=== PATIENT | female | born 1985 | race Caucasian/White ===

== ENCOUNTER 2016-06-22 07:26 | Inpatient (IN) | payer OTHER ==
[~2016-06-22] VITALS: Ht 162.6 cm; Wt 78.9 kg
[2016-06-22] MEDS ORDERED: fentaNYL-PF 50 mCg/mL 2 mL Inj IVPUSH PRN (08:00)
[2016-06-22] MEDS ORDERED: Oxytocin 10 Unit/mL Inj IM PRN (08:00)
[2016-06-22] MEDS ORDERED: Hemorrhage Kit, Post Partum XX ONE (08:00)
[2016-06-22] MEDS ORDERED: Oxytocin 30 Units/500 mL LR 30 UNITS in IV Premix 1 EACH IV PRN (08:00)
[2016-06-22] MEDS ORDERED: Penicillin G K Inj 5,000,000 UNITS in Dextrose 5% Minibag Plus 100 ML IV ONE (08:00)
[2016-06-22] MEDS ORDERED: Carboprost 250 mCg/mL Inj IM PRN (08:00)
[2016-06-22] MEDS ORDERED: Sodium Chloride LOK Flush 10 mL Syringe IVFLUSH PRN (08:00)
[2016-06-22] MEDS ORDERED: Methylergonovine 0.2 mg/mL Inj IM PRN (08:00)
[2016-06-22 08:50] LABS: Mean Corpuscular Volume 85.4 fL (81-100)
[2016-06-22] MEDS: Misoprostol 25 mCg/0.25 Tablet VAGINAL SCH ×2 (08:50→14:16)
[2016-06-22] MEDS: Lactated Ringer's 1,000 ML IV PRN ×2 (10:52→15:43)
[2016-06-22] MEDS: Penicillin G K Inj 3,000,000 UNITS in IV Premix 1 EACH IV SCH ×2 (15:44→21:26)
[2016-06-22] MEDS ORDERED: Lactated Ringer's 1,000 ML IV SCH (22:59)
[2016-06-22] MEDS ORDERED: Lactated Ringer's 500 ML IV ONE (22:59)
[2016-06-22] MEDS ORDERED: Ondansetron 2 mg/mL 2 mL Inj IVPUSH PRN (23:00)
[2016-06-22] MEDS ORDERED: fentaNYL 2 mCg/mL-Bupiv 0.125% 100 ML EPIDURAL SCH (23:00)
[2016-06-22] MEDS ORDERED: EPHEDrine Sulfate 50 mg/mL Inj IVPUSH PRN (23:00)
[2016-06-22] MEDS ORDERED: Atropine 1 mg/10 mL (Code) Syringe IVPUSH PRN (23:00)
[2016-06-23] MEDS ORDERED: Sodium Chloride LOK Flush 10 mL Syringe IVFLUSH SCH (00:30)
[2016-06-23] MEDS: Penicillin G K Inj 3,000,000 UNITS in IV Premix 1 EACH IV SCH (02:12)
[2016-06-23] MEDS ORDERED: Lactated Ringer's 1,000 ML IV SCH ×2 (06:36→07:37)
[2016-06-23] MEDS ORDERED: Oxytocin 10 Unit/mL Inj IM PRN ×2 (06:40→07:40)
[2016-06-23] MEDS ORDERED: Hemorrhage Kit, Post Partum XX ONE ×2 (06:40→07:40)
[2016-06-23] MEDS ORDERED: Carboprost 250 mCg/mL Inj IM PRN ×2 (06:40→07:40)
[2016-06-23] MEDS ORDERED: Methylergonovine 0.2 mg/mL Inj IM PRN ×2 (06:40→07:40)
[2016-06-23] MEDS ORDERED: LANOlin HPA 7 Gm Ointment TOPICAL PRN (07:40)
[2016-06-23] MEDS ORDERED: Benzocaine (Dermoplast) 20% 60 Gm Spray TOPICAL PRN (07:40)
[2016-06-23] MEDS ORDERED: Witch Hazel-Glycerin Pads TOPICAL PRN (07:40)
[2016-06-23] MEDS ORDERED: Oxytocin 30 Units/500 mL LR 30 UNITS in IV Premix 1 EACH IV PRN (07:40)
[2016-06-23] MEDS: HYDROcodone-APAP 5-325 mg Tablet PO PRN ×4 (08:00→23:26)
[2016-06-23] MEDS: CeFAZolin Inj 1 GM in IV Premix 1 EACH IV SCH ×2 (08:37→16:46)
--- NOTE | 2016-06-23 23:22 | PROCED ---
[address] [address] PROCEDURE NOTE PATIENT: ADAN RAE : 1985 MR#: [id number] ADMIT: 06/22/2016 JOB ID: [id number] DATE OF SERVICE: 06/23/2016 at 5:52 a.m. POSTOPERATIVE DIAGNOSIS(ES): PREOPERATIVE DIAGNOSIS(ES): SURGEON: ANESTHESIA: This female at 41.5 weeks estimated gestational age delivered a vigorous infant female with Apgars of 8 and 9 by normal vaginal delivery. The patient presented for induction on June 22. She received two doses of Cytotec during that day and then entered labor in the normal fashion. She stated in latent labor for several hours and then progressed on her own without the help of Pitocin. She did receive four doses of antibiotics prior to delivery. The antibiotic of choice was penicillin. She spontaneously ruptured her membranes about 2 hours prior to delivery. This was clear fluid. The patient had no fevers. She was complete by 5 a.m. She was allowed to labor down. She was a very effective 1st pusher when she started to push and pushed over approximately 20-30 minutes. There was terminal deceleration noted that was down into the 70s and stayed down and so an episiotomy was cut. This was a second-degree midline episiotomy. The infant delivered in quick fashion and a nuchal cord was reduced on the perineum. The was immediately vigorous. Delayed cord clamping was performed. Once approximately 2-3 minutes had gone by, the cord was clamped and cut and cord blood was sent for analysis. At this point, active management of this stage of labor was applied and Pitocin was started along with gentle traction on the cord. Unfortunately, this resulted in the placenta becoming entrapped due to the fact that the placenta was so small and the cord was lacking very much Lamb's jelly. Fortunately, the patient had an epidural. I had to manually extract the placenta and this still caused discomfort despite the epidural. The placenta was eventually fully extracted and I rechecked her uterus for any remnants and none were found. The patient was placed on antibiotics following delivery for this reason, however. The patient then required repair of her second-degree perineal laceration/episiotomy. This was repaired in the usual fashion using 3-0 Vicryl. 8 cc of local anesthesia was used. The patient's uterus was found to be firm following delivery. Pitocin was kept running at 350 cc an hour. The total blood loss was 300 cc and there were no other complications. The patient was in excellent condition following delivery.
[2016-06-24] MEDS: CeFAZolin Inj 1 GM in IV Premix 1 EACH IV SCH ×2 (00:49→08:26)
[2016-06-24] MEDS: HYDROcodone-APAP 5-325 mg Tablet PO PRN ×3 (03:52→13:18)
[2016-06-24 07:00] LABS: Mean Corpuscular Hemoglobin 28.3 pg (27.0-35.0); Mean Corpuscular Volume 87.2 fL (81-100)
--- NOTE | 2016-06-24 12:14 | PCM.DC.OB ---
Obstetrical Discharge Summary Date of Service Jun 24, 2016 Date of hospital admission Jun 22, 2016 at 07:26 Date of Discharge: Jun 24, 2016 Providers Admitting Physician: Toño Avalos MD Primary Care Physician: Toño Avalos MD Attending Physician: Toño Avalos MD Problems: (1) Status post normal vaginal delivery Status: Acute ICD Code: [id number] Consultations None Hospital Course: Patient delivered and recovered in excellent fashion after induction Discharge Diet: No restrictions Discharge Activity-General: Pelvic Rest for 6 weeks, Be up and about, Balance rest and activity, Activity as pain allows, Activity as energy allows, No lifting >15 pounds for 2 weeks Toño Avalos MD Jun 24, 2016 12:14
[2016-06-24] MEDS ORDERED: IBUP800T28 PO (12:16)
[2016-06-24] MEDS ORDERED: HYDR-4003 PO (12:16)
--- NOTE | 2016-06-24 12:16 | PCM.DIOB ---
Obstetrical Disch Instruction Date of Service: Jun 24, 2016 Dates of Hospitalization Date of Hospital Admission Jun 22, 2016 at 07:26 Providers Admitting Physician: Toño Avalos MD Primary Care Physician: Toño Avalos MD Attending Physician: Toño Avalos MD Discharge Diagnosis Problems: (1) Status post normal vaginal delivery Status: Acute ICD Code: [id number] Diet Discharge Diet: No restrictions Activity Discharge Activity-General: Pelvic Rest for 6 weeks, Balance rest and activity , Activity as pain allows, Activity as energy allows, No lifting >15 pounds for 2 weeks Dressing and Incisional Care Hygiene: May shower, Perineal care, Sitz bath, Dermoplast spray, Witch Paloma pads Follow Up Plan Follow-up Provider (F9): Toño Avalos MD Follow-up appointment: Weeks (8) Call your provider for: Fever or Chills, Shortness of breath, Heavy vaginal bleeding, Excessive constipation, Vaginal discomfort, Red painful breasts Toño Avalos MD Jun 24, 2016 12:16
[2016-06-24 12:57] VITALS: BP 116/54; PULSE 64; RESP 17
--- NOTE | 2016-07-23 20:03 | PCM.HPOB ---
Subjective Date of Service: Jun 22, 2016 Referring Provider: Admitting Physician: Toño Avalos MD Primary Care Physician: Toño Avalos MD Attending Physician: Toño Avalos MD Chief Complaint Post dates primiparous female (see prenatals and paper H and P) History of Present History of Present Illness Patient is a female at 41 1/2 weeks EGA who presents for induction. She has had an uncomplicated course. No contractions. No cervical change. OB History: (1), Para (0) Obstetrical Complications: None Past Medical History Obstetrical History: N/C Gynecologic History: N/C Medical History: N/C Surgical History: N/C Social History: Yun. . Hx Tobacco Use: No Hx Alcohol Use: No Hx Substance Use: No Past Family History Living Arrangement: with Family Genetic Screening/Counseling Genetic Screening/Counseling: Negative Review of Systems Eyes: Denies: Blurred Vision Cardiovascular: Denies: Chest Pain, Edema Respiratory: Denies: Cough Gastrointestinal: Denies: Abdominal Pain Allergy Coded Allergies: No Known Allergies (Unverified Allergy, Unknown, 06/22/16) Exam Constitutional: Well-developed, Well-nourished Lungs: Clear to Auscultation Heart: Exam Unremarkable Abdomen: Gravid Extremities: Pulses Palpable x4 Neurological/Psychiatric: Alert, Oriented X3 Gynecologic: Normal: Cervix, Uterus OB Intrapartum Assessment/Plan Problems: (1) Post-dates Plan: Cytotec induction...then pitocin as needed. Epidural prn Status: Acute ICD Code: O48.0 Pain Evaluation: Adequate Pain Control Post plan: Other Toño Avalos MD Jul 23, 2016 20:03
== END 2016-06-24 13:23 | disposition home or self-care (01) | DRG 767 ==
LOC: FBC 07:26
PROVIDERS: ADMIT Family Medicine; ATTEND Family Medicine
PROC: 10E0XZZ Delivery of Products of Conception, External Approach (ICD-10-PCS; principal; 2016-06-23)
PROC: 10D17ZZ Extraction of Products of Conception, Retained, Via Natural or Artificial Opening (ICD-10-PCS; 2016-06-23)
PROC: 0KQM0ZZ Repair Perineum Muscle, Open Approach (ICD-10-PCS; 2016-06-23)
PROC: 3E0P7GC Introduction of Other Therapeutic Substance into Female Reproductive, Via Natural or Artificial Opening (ICD-10-PCS; 2016-06-23)
PROC: 0W8NXZZ Division of Female Perineum, External Approach (ICD-10-PCS; 2016-06-23)
DX: O70.1 Second degree perineal laceration during delivery (principal); Z37.0 Single live birth; O48.0 Post-term pregnancy; Z3A.41 41 weeks gestation of pregnancy; O76 Abnormality in fetal heart rate and rhythm complicating labor and delivery; O73.0 Retained placenta without hemorrhage; O99.824 Streptococcus B carrier state complicating childbirth; O69.81X0 Labor and delivery complicated by cord around neck, without compression, not applicable or unspecified